=== PATIENT | female | born 1960 | race Caucasian/White ===

== ENCOUNTER 2017-01-17 12:42 | Outpatient (CLI) | payer MEDICAID | END 2017-01-17 12:43 | disposition home or self-care (01) | DX: Z12.31 Encounter for screening mammogram for malignant neoplasm of breast (principal) ==

== ENCOUNTER 2017-01-17 12:44 | Outpatient (CLI) | payer MEDICAID | END 2017-01-17 12:45 | disposition home or self-care (01) | DX: M85.89 Other specified disorders of bone density and structure, multiple sites (principal) ==